=== PATIENT | female | born 1955 | race Hispanic/Latino ===

== ENCOUNTER → 2017-03-18 | Outpatient (CLI) | payer OTHER ==
[~2017-03-18] MED LIST: APIX5TAB PO; NYQUIL PO; TYL3 PO
[2017-03-18 09:07] LABS: INR 1.02 (0.85-1.15); PARTIAL THROMBOPLASTIN TIME 25.7 SEC (26.3-35.5); PROTHROMBIN TIME 10.7 SEC (9.6-11.6)
== END | disposition home or self-care (01) ==
LOC: LAB 08:07
PROVIDERS: ATTEND Internal Medicine
DX: Z86.711 Personal history of pulmonary embolism (principal)
CPT/HCPCS: 36415; 81241; 85300; 85302; 85305; 85306; 85610; 85730

== ENCOUNTER → 2017-03-29 | Outpatient (CLI) | payer OTHER ==
[2017-03-29 09:58] LABS: CREATININE 0.7 mg/dL (0.5-1.5)
== END | disposition home or self-care (01) ==
LOC: LAB 08:56
PROVIDERS: ATTEND Internal Medicine
DX: I26.99 Other pulmonary embolism without acute cor pulmonale (principal)
CPT/HCPCS: 36415; 82565; 84520

== ENCOUNTER → 2017-04-01 | Outpatient (CLI) | payer OTHER ==
[~2017-04-01] MED LIST changes: +IOPAMIDOL-370 100 ML VIAL IV ONE
== END | disposition home or self-care (01) ==
LOC: RAH 12:56
PROVIDERS: ATTEND Internal Medicine
DX: I26.99 Other pulmonary embolism without acute cor pulmonale (principal); I51.7 Cardiomegaly; M47.895 Other spondylosis, thoracolumbar region; K76.0 Fatty (change of) liver, not elsewhere classified
CPT/HCPCS: 71275; Q9967

== ENCOUNTER → 2017-12-17 | Outpatient (CLI) | payer OTHER ==
[~2017-12-17] MED LIST changes: -IOPAMIDOL-370 100 ML VIAL IV ONE
[2017-12-17 10:44] LABS: CREATININE 0.7 mg/dL (0.5-1.5)
== END | disposition home or self-care (01) ==
LOC: LAB 09:59
PROVIDERS: ATTEND Internal Medicine
DX: R05 Cough (principal); R06.02 Shortness of breath; R07.9 Chest pain, unspecified
CPT/HCPCS: 36415; 82565; 84520

== ENCOUNTER → 2017-12-27 | Outpatient (CLI) | payer OTHER ==
[~2017-12-27] MED LIST changes: +IOHEXOL 350 MG/ML 100ML INFUS..BTL IV ONE
== END | disposition home or self-care (01) ==
LOC: RAH 08:17
PROVIDERS: ATTEND Internal Medicine
DX: R06.02 Shortness of breath (principal); R05 Cough; R07.9 Chest pain, unspecified
CPT/HCPCS: 71275; Q9967

== ENCOUNTER → 2018-03-21 | Outpatient (CLI) | payer OTHER ==
[~2018-03-21] MED LIST changes: -IOHEXOL 350 MG/ML 100ML INFUS..BTL IV ONE
== END | disposition home or self-care (01) ==
LOC: RAH 10:18
PROVIDERS: ATTEND Internal Medicine
DX: M79.604 Pain in right leg (principal); Z86.718 Personal history of other venous thrombosis and embolism
CPT/HCPCS: 93970

== ENCOUNTER → 2018-05-29 | Outpatient (CLI) | payer OTHER | END | disposition home or self-care (01) | LOC: RAH 12:42 | PROVIDERS: ATTEND Internal Medicine | DX: Z12.31 Encounter for screening mammogram for malignant neoplasm of breast (principal) | CPT/HCPCS: 77067 ==

== ENCOUNTER → 2018-07-03 | Outpatient (CLI) | payer OTHER | END | disposition home or self-care (01) | LOC: RAH 12:26 | PROVIDERS: ATTEND Obstetrics & Gynecology | DX: N95.0 Postmenopausal bleeding (principal) | CPT/HCPCS: 76830 ==

== ENCOUNTER 2018-07-25 05:44 | Day surgery (SDC) | payer OTHER ==
[~2018-07-25] VITALS: Ht 157.5 cm; Wt 105.2 kg
[~2018-07-25 05:44] MED LIST changes: +SODIUM CHLORIDE 0.9% 1000ML 1,000 ML IV ONE
[2018-07-25 06:39] VITALS: BP 154/98
[2018-07-25] MEDS ORDERED: MV-M1TAB20 PO (06:45)
[2018-07-25 07:58] VITALS: BP 128/71
[2018-07-25 08:03] VITALS: BP 136/84
[2018-07-25 08:08] VITALS: BP 125/84
[2018-07-25 08:13] VITALS: BP 139/88
[2018-07-25 08:18] VITALS: BP 129/87
== END 2018-07-25 08:30 | disposition home or self-care (01) ==
LOC: DAH 05:44 → ENDO 05:44
PROVIDERS: ATTEND Internal Medicine
DX: Z09 Encounter for follow-up examination after completed treatment for conditions other than malignant neoplasm (principal); K57.30 Diverticulosis of large intestine without perforation or abscess without bleeding; K64.0 First degree hemorrhoids; Z86.010 Personal history of colon polyps; Z90.49 Acquired absence of other specified parts of digestive tract; Z86.711 Personal history of pulmonary embolism
CPT/HCPCS: 45378; A4606; J7030

== ENCOUNTER 2018-07-25 15:16 | Emergency (ER) | payer OTHER ==
[~2018-07-25 15:16] MED LIST changes: +MV-M1TAB20 PO; -SODIUM CHLORIDE 0.9% 1000ML 1,000 ML IV ONE
[2018-07-25] MEDS ORDERED: LIDOCAINE HCL 2% VISCOUS 15 ML UDCUP ONE (15:41)
[2018-07-25] MEDS ORDERED: MAG HYDROX/AL HYDROX/SIMETH ES 30 ML SUSP UDCUP ONE (15:41)
[2018-07-25] MEDS ORDERED: HYDROCODONE/ACETAMINOPHEN 5/325 MG TAB ONE (16:41)
[2018-07-25] MEDS ORDERED: MORPHINE SULFATE 2 MG/ML 1ML SYG ONE (16:44)
== END 2018-07-25 18:04 | disposition home or self-care (01) ==
LOC: EDH 15:16
DX: R13.10 Dysphagia, unspecified (principal); J32.0 Chronic maxillary sinusitis; Z90.49 Acquired absence of other specified parts of digestive tract
CPT/HCPCS: 70490; 96372

== ENCOUNTER → 2018-11-27 | Outpatient (CLI) | payer OTHER ==
[~2018-11-27] MED LIST changes: +ALBUTEROL SULFATE 0.083% 2.5 MG/3 ML INH IH ONE; -APIX5TAB PO; -NYQUIL PO; -TYL3 PO
== END | disposition home or self-care (01) ==
LOC: RESP 08:26
PROVIDERS: ATTEND Internal Medicine
DX: R06.02 Shortness of breath (principal)
CPT/HCPCS: 94060; 94727; 94729

== ENCOUNTER → 2018-11-28 | Outpatient (CLI) | payer OTHER ==
[~2018-11-28] MED LIST changes: -ALBUTEROL SULFATE 0.083% 2.5 MG/3 ML INH IH ONE
[2018-11-28 11:28] LABS: BASOPHILS % (AUTO) 0.9 % (0.0-5.0); HEMATOCRIT 40.1 % (36-48); LYMPHOCYTES % (AUTO) 35.6 % (21.0-51.0); MEAN CORPUSCULAR HEMOGLOBIN 31.8 pg (27.0-33.0); MEAN CORPUSCULAR HGB CONC 34.3 g/dL (32.0-36.0); MEAN CORPUSCULAR VOLUME 92.8 fL (79-99); NEUTROPHILS % (AUTO) 51.5 % (40.0-77.0); NUCLEATED RED BLOOD CELLS 0.1 % (0.0-0.19); PLATELET COUNT (AUTO) 259 K/uL (130-400); RED BLOOD CELL COUNT(AUTO) 4.32 MIL/uL (4.00-5.50); RED CELL DISTRIBUTION WIDTH 12.1 % (11.0-15.5); WHITE BLOOD COUNT (AUTO) 6.6 K/uL (4.8-10.8)
[2018-11-28 11:46] LABS: PARTIAL THROMBOPLASTIN TIME 26.4 SEC (26.3-35.5); PROTHROMBIN TIME 10.5 SEC (9.6-11.6)
== END | disposition home or self-care (01) ==
LOC: RAH 10:32
PROVIDERS: ATTEND Obstetrics & Gynecology
DX: N83.201 Unspecified ovarian cyst, right side (principal); D25.9 Leiomyoma of uterus, unspecified
CPT/HCPCS: 36415; 76830; 85025; 85610; 85730

== ENCOUNTER 2018-12-31 05:51 | Day surgery (SDC) | payer OTHER ==
[2018-12-30 15:41] LABS: BASOPHILS % (AUTO) 0.9 % (0.0-5.0); EOSINOPHILS % (AUTO) 2.9 % (0.0-8.0); HEMATOCRIT 40.7 % (36-48); LYMPHOCYTES % (AUTO) 32.7 % (21.0-51.0); MEAN CORPUSCULAR HEMOGLOBIN 31.6 pg (27.0-33.0); MEAN CORPUSCULAR HGB CONC 34.1 g/dL (32.0-36.0); MEAN CORPUSCULAR VOLUME 92.8 fL (79-99); MONOCYTES % (AUTO) 6.7 % (3.0-13.0); NEUTROPHILS % (AUTO) 56.8 % (40.0-77.0); PLATELET COUNT (AUTO) 249 K/uL (130-400); RED BLOOD CELL COUNT(AUTO) 4.39 MIL/uL (4.00-5.50); RED CELL DISTRIBUTION WIDTH 12.1 % (11.0-15.5); WHITE BLOOD COUNT (AUTO) 7.2 K/uL (4.8-10.8)
[2018-12-30 15:49] VITALS: BP 150/84
[2018-12-30 16:02] LABS: CREATININE 0.7 mg/dL (0.5-1.5)
[2018-12-31] VITALS (13 sets, daily range): BP systolic 124–150; BP diastolic 62–84
[~2018-12-31] VITALS: Ht 160 cm; Wt 107.5 kg
[2018-12-31] MEDS ORDERED: LACTATED RINGERS 1000ML 1,000 ML IV ONE (06:15)
[2018-12-31] MEDS ORDERED: LIDOCAINE PF 2% 5ML ABBOJECT ONE (06:55)
[2018-12-31] MEDS ORDERED: PROPOFOL 10 MG/ML 20ML VIAL IV ONE (06:55)
[2018-12-31] MEDS ORDERED: MIDAZOLAM HCL 1 MG/ML 2ML VIAL ONE (06:55)
[2018-12-31] MEDS ORDERED: FENTANYL CITRATE PF 50 MCG/1 ML 2ML VIAL ONE ×2 (06:56→07:50)
[2018-12-31] MEDS ORDERED: ROCURONIUM 10MG/1ML SYR 10 MG/ML ML ONE (06:56)
[2018-12-31] MEDS ORDERED: ONDANSETRON HCL 4 MG/2 ML VIAL ONE (06:56)
[2018-12-31] MEDS ORDERED: DEXAMETHASONE SOD PHOSPHATE 10MG/ML 1ML VIAL ONE (07:42)
[2018-12-31] MEDS ORDERED: NEOSTIGMINE 5MG/5ML SYR IV ONE (07:59)
[2018-12-31] MEDS ORDERED: GLYCOPYRROLATE 1 MG/5 ML SYRINGE ONE (07:59)
--- NOTE | 2018-12-31 09:00 | NUR ---
POST RECEIVED PATIENT FROM PACU, S/P D&C HYSTEROSCOPY, LEBRON PAD WITH NO BLEEDING NOTED. PT AWAKE AND ALERT, DENIES ANY PAIN OR DISCOMFORTS.VS STABLE ON ARRIVAL. PLAN OF CARE DISCUSS WITH PATIENT /DAUGHTER. CALL LIGHT WITHIN REACH ,.
--- NOTE | 2018-12-31 09:40 | NUR ---
dc pt dc home via wc,no distress noted. pt denied any pain or discomforts. pt accompanied by daughter
== END 2018-12-31 09:40 | disposition home or self-care (01) ==
LOC: DAH 05:51
PROVIDERS: ATTEND Obstetrics & Gynecology
DX: N95.0 Postmenopausal bleeding (principal); N84.0 Polyp of corpus uteri; R93.89 Abnormal findings on diagnostic imaging of other specified body structures; Z79.899 Other long term (current) drug therapy; Z79.2 Long term (current) use of antibiotics; Z90.49 Acquired absence of other specified parts of digestive tract; Z98.890 Other specified postprocedural states; E66.01 Morbid (severe) obesity due to excess calories; Z68.41 Body mass index [BMI] 40.0-44.9, adult; Z82.49 Family history of ischemic heart disease and other diseases of the circulatory system
CPT/HCPCS: 36415; 58558; 80048; 85025; 88305; A4215; A4221; A4222; A4223; A4351; A4355; A4663; J1100; J2001; J2250; J2405; J2704; J2710; J3010 ×2; J3490; J7030; J7120

== ENCOUNTER → 2019-03-23 | Outpatient (CLI) | payer OTHER ==
[2019-03-23 08:38] LABS: BASOPHILS % (AUTO) 0.6 % (0.0-5.0); EOSINOPHILS % (AUTO) 2.7 % (0.0-8.0); HEMATOCRIT 42.2 % (36-48); LYMPHOCYTES % (AUTO) 30.4 % (21.0-51.0); MEAN CORPUSCULAR HGB CONC 33.9 g/dL (32.0-36.0); MEAN CORPUSCULAR VOLUME 91.5 fL (79-99); MONOCYTES % (AUTO) 6.4 % (3.0-13.0); NEUTROPHILS % (AUTO) 59.7 % (40.0-77.0); PLATELET COUNT (AUTO) 262 K/uL (130-400); RED BLOOD CELL COUNT(AUTO) 4.61 MIL/uL (4.00-5.50); RED CELL DISTRIBUTION WIDTH 11.5 % (11.0-15.5); WHITE BLOOD COUNT (AUTO) 6.6 K/uL (4.8-10.8)
[2019-03-23 08:47] LABS: HEMOGLOBIN A1C 6.5 % (4.0-6.0)
[2019-03-23 09:04] LABS: ALBUMIN 3.8 g/dL (3.5-5.0); BILIRUBIN,TOTAL 1.4 mg/dL (0.2-1.0); CREATININE 0.7 mg/dL (0.5-1.5); POTASSIUM 4.4 mmol/L (3.5-5.1); THYROID STIMULATING HORMONE 1.83 uIU/mL (0.36-3.74); TOTAL PROTEIN, SERUM 7.8 g/dL (6.0-8.3)
[2019-03-23 09:05] LABS: APPEARANCE,URINE Clear (CLEAR); BILIRUBIN,URINE Negative (NEGATIVE); COLOR,URINE Yellow (YELLOW); GLUCOSE, URINE (UA) Negative (NEGATIVE); KETONES,URINE Negative (NEGATIVE); LEUKOCYTE ESTERASE ,URINE Moderate (NEGATIVE); NITRATE,URINE Negative (NEGATIVE); OCCULT BLOOD,URINE Negative (NEGATIVE); PROTEIN,URINE Negative (NEGATIVE)
[2019-03-23 09:12] LABS: BACTERIA,URINE Rare /HPF (None Seen); MUCUS,URINE Moderate LPF (None Seen); RBC,URINE 0-1 /HPF (0-1); SQUAMOUS EPITHELIAL CELL,UR Rare /HPF (0-2)
== END | disposition home or self-care (01) ==
LOC: LAB 07:25
PROVIDERS: ATTEND Internal Medicine Nephrology
DX: Z00.01 Encounter for general adult medical examination with abnormal findings (principal)
CPT/HCPCS: 36415; 80053; 80061; 81001; 83036; 84443; 85025

== ENCOUNTER → 2019-09-29 | Outpatient (CLI) | payer OTHER ==
[2019-09-29 09:12] LABS: BASOPHILS % (AUTO) 0.6 % (0.0-5.0); EOSINOPHILS % (AUTO) 3.7 % (0.0-8.0); HEMATOCRIT 41.6 % (36-48); LYMPHOCYTES % (AUTO) 26.3 % (21.0-51.0); MEAN CORPUSCULAR HEMOGLOBIN 31.9 pg (27.0-33.0); MEAN CORPUSCULAR HGB CONC 33.9 g/dL (32.0-36.0); MEAN CORPUSCULAR VOLUME 94.1 fL (79-99); NEUTROPHILS % (AUTO) 62.1 % (40.0-77.0); PLATELET COUNT (AUTO) 248 K/uL (130-400); RED BLOOD CELL COUNT(AUTO) 4.42 MIL/uL (4.00-5.50); RED CELL DISTRIBUTION WIDTH 11.4 % (11.0-15.5); WHITE BLOOD COUNT (AUTO) 6.7 K/uL (4.8-10.8)
[2019-09-29 09:22] LABS: HEMOGLOBIN A1C 7.1 % (4.0-6.0)
[2019-09-29 09:35] LABS: ALBUMIN 3.6 g/dL (3.5-5.0); BILIRUBIN,TOTAL 1.1 mg/dL (0.2-1.0); CREATININE 0.7 mg/dL (0.5-1.5); POTASSIUM 4.7 mmol/L (3.5-5.1); THYROID STIMULATING HORMONE 1.59 uIU/mL (0.36-3.74); TOTAL PROTEIN, SERUM 7.3 g/dL (6.0-8.3)
== END | disposition home or self-care (01) ==
LOC: LAB 08:41
PROVIDERS: ATTEND Internal Medicine Nephrology
DX: E11.9 Type 2 diabetes mellitus without complications (principal); E78.2 Mixed hyperlipidemia; R53.83 Other fatigue
CPT/HCPCS: 36415; 80053; 80061; 83036; 84443; 85025

== ENCOUNTER 2020-01-04 07:57 | Emergency (ER) | payer OTHER ==
[2020-01-04 08:32] LABS: BASOPHILS % (AUTO) 0.3 % (0.0-5.0); HEMATOCRIT 42.4 % (36-48); MEAN CORPUSCULAR HEMOGLOBIN 30.9 pg (27.0-33.0); MEAN CORPUSCULAR HGB CONC 33.3 g/dL (32.0-36.0); MEAN CORPUSCULAR VOLUME 92.8 fL (79-99); NEUTROPHILS % (AUTO) 48.4 % (40.0-77.0); PLATELET COUNT (AUTO) 199 K/uL (130-400); RED BLOOD CELL COUNT(AUTO) 4.57 MIL/uL (4.00-5.50); RED CELL DISTRIBUTION WIDTH 11.5 % (11.0-15.5); WHITE BLOOD COUNT (AUTO) 3.9 K/uL (4.8-10.8)
[2020-01-04 08:35] LABS: ALBUMIN 3.9 g/dL (3.5-5.0); BILIRUBIN,TOTAL 0.9 mg/dL (0.2-1.0); CREATININE 0.9 mg/dL (0.5-1.5); POTASSIUM 3.8 mmol/L (3.5-5.1); TOTAL PROTEIN, SERUM 7.5 g/dL (6.0-8.3)
[2020-01-04 08:41] LABS: INR 0.99 (0.85-1.15); PARTIAL THROMBOPLASTIN TIME 26.6 SEC (26.3-35.5); PROTHROMBIN TIME 10.7 SEC (9.6-11.6)
[2020-01-04] MEDS ORDERED: LIDOCAINE 5% TOPICAL PATCH TP ONE (09:23)
[2020-01-04] MEDS ORDERED: KETOROLAC TROMETHAMINE 30MG/ML ONE (09:23)
[2020-01-04] MEDS ORDERED: SODIUM CHLORIDE 0.9% 500ML 500 ML IV ONE (10:00)
[2020-01-04] MEDS ORDERED: IOHEXOL-350 75 ML VIAL IV ONE (10:10)
== END 2020-01-04 11:49 | disposition home or self-care (01) ==
LOC: EDH 07:57
DX: M79.651 Pain in right thigh (principal); M25.511 Pain in right shoulder; M25.512 Pain in left shoulder; M79.602 Pain in left arm; R06.00 Dyspnea, unspecified; Z86.711 Personal history of pulmonary embolism; Z86.718 Personal history of other venous thrombosis and embolism; Z98.890 Other specified postprocedural states
CPT/HCPCS: 36415; 71045; 71275; 80053; 82550; 84484; 85025; 85378; 85610; 85730; 93005; 93926; 93971; 96361; 96374; 99285; J1885; J7040; Q9967

== ENCOUNTER 2020-01-12 08:58 | Emergency (ER) | payer OTHER ==
[2020-01-12] MEDS ORDERED: ONDANSETRON HCL 4 MG/2 ML VIAL ONE (09:50)
[2020-01-12] MEDS ORDERED: SODIUM CHLORIDE 0.9% 1000ML 1,000 ML IV ONE (09:50)
[2020-01-12 09:54] LABS: BASOPHILS % (AUTO) 0.2 % (0.0-5.0); HEMATOCRIT 44.3 % (36-48); LYMPHOCYTES % (AUTO) 21.1 % (21.0-51.0); MEAN CORPUSCULAR HEMOGLOBIN 31.1 pg (27.0-33.0); MEAN CORPUSCULAR HGB CONC 34.3 g/dL (32.0-36.0); MEAN CORPUSCULAR VOLUME 90.8 fL (79-99); MONOCYTES % (AUTO) 10.5 % (3.0-13.0); NEUTROPHILS % (AUTO) 67.8 % (40.0-77.0); PLATELET COUNT (AUTO) 194 K/uL (130-400); RED BLOOD CELL COUNT(AUTO) 4.88 MIL/uL (4.00-5.50); RED CELL DISTRIBUTION WIDTH 11.5 % (11.0-15.5); WHITE BLOOD COUNT (AUTO) 4.7 K/uL (4.8-10.8)
[2020-01-12 10:09] LABS: CARBON DIOXIDE 23 mmol/L (21-32); CHLORIDE 103 mmol/L (101-111); GLOMERULAR FILTR. RATE CALC 60 mL/min (>60); GLUCOSE,RANDOM 208 mg/dL (70-105); SODIUM SERUM 137 mmol/L (136-145); UREA NITROGEN, BLOOD 10 mg/dL (7-18)
[2020-01-12 10:10] LABS: PARTIAL THROMBOPLASTIN TIME 27.1 SEC (26.3-35.5); PROTHROMBIN TIME 10.8 SEC (9.6-11.6)
[2020-01-12 10:12] LABS: BILIRUBIN,URINE Small (NEGATIVE); COLOR,URINE Dark Yellow (YELLOW); GLUCOSE, URINE (UA) TRACE mg/dL (NEGATIVE); KETONES,URINE 15 mg/dL (NEGATIVE); LEUKOCYTE ESTERASE ,URINE Moderate (NEGATIVE); NITRATE,URINE Negative (NEGATIVE); OCCULT BLOOD,URINE Negative (NEGATIVE); PROTEIN,URINE POS 2+ mg/dL (NEGATIVE)
[2020-01-12] MEDS ORDERED: IVERMECTIN 3 MG TAB PO SCH (10:15)
[2020-01-12 10:20] LABS: ALANINE AMINOTRANSFERASE 73 U/L (12-78); ALBUMIN 3.7 g/dL (3.5-5.0); APPEARANCE,URINE SLIGHTLY CLOUDY (CLEAR); ASPARTATE AMINOTRANSFERASE 65 U/L (10-37); BILIRUBIN,TOTAL 1.3 mg/dL (0.2-1.0); CREATINE KINASE, TOTAL 117 U/L (21-232); LACTATE DEHYDROGENASE 303 U/L (81-234); MYOGLOBIN 106 ng/mL (10-92); TROPONIN I < 0.04 ng/mL (0.00-0.06)
[2020-01-12 10:29] LABS: BACTERIA,URINE Moderate /HPF (None Seen); RBC,URINE None Seen /HPF (0-1)
[2020-01-12 11:03] LABS: ERYTHROCYTE SEDIMENTATION RATE 30 MM/HR (0-30)
== END 2020-01-12 12:16 | disposition home or self-care (01) ==
LOC: EDH 08:58
DX: U07.1 COVID-19 (principal); J20.8 Acute bronchitis due to other specified organisms; E86.0 Dehydration; Z86.718 Personal history of other venous thrombosis and embolism; Z98.890 Other specified postprocedural states
CPT/HCPCS: 36415; 71045; 80053; 81001; 82550; 82728; 83605; 83615; 83874; 84145; 84484; 85025; 85378; 85610; 85651; 85730; 86140; 86900; 86901; 87040 ×2; 87088; 87426; 87507; 93005; 96361; 96374; 99285; J2405; J7030; 96365; 96366

== ENCOUNTER → 2020-02-01 | Outpatient (CLI) | payer OTHER | END | disposition home or self-care (01) | LOC: RAH 07:45 | PROVIDERS: ATTEND Internal Medicine Nephrology | DX: M79.651 Pain in right thigh (principal) | CPT/HCPCS: 73718 ==

== ENCOUNTER 2020-07-08 11:33 | Emergency (ER) | payer OTHER ==
[2020-07-08 12:02] LABS: BASOPHILS % (AUTO) 0.6 % (0.0-5.0); EOSINOPHILS % (AUTO) 3.2 % (0.0-8.0); HEMATOCRIT 39.8 % (36-48); LYMPHOCYTES % (AUTO) 36.1 % (21.0-51.0); MEAN CORPUSCULAR HGB CONC 34.4 g/dL (32.0-36.0); MONOCYTES % (AUTO) 6.2 % (3.0-13.0); NEUTROPHILS % (AUTO) 53.4 % (40.0-77.0); PLATELET COUNT (AUTO) 203 K/uL (130-400); RED BLOOD CELL COUNT(AUTO) 4.28 MIL/uL (4.00-5.50); RED CELL DISTRIBUTION WIDTH 11.7 % (11.0-15.5); WHITE BLOOD COUNT (AUTO) 6.3 K/uL (4.8-10.8)
[2020-07-08 12:10] LABS: INR 1.05 (0.85-1.15); PROTHROMBIN TIME 11.4 SEC (9.6-11.6)
[2020-07-08 12:26] LABS: CREATININE 0.7 mg/dL (0.5-1.5)
[2020-07-08 12:31] LABS: ALBUMIN 3.7 g/dL (3.5-5.0); BILIRUBIN,TOTAL 1.3 mg/dL (0.2-1.0); TOTAL PROTEIN, SERUM 7.4 g/dL (6.0-8.3)
[2020-07-08] MEDS ORDERED: IOHEXOL-350 75 ML VIAL IV ONE (12:45)
== END 2020-07-08 15:44 | disposition home or self-care (01) ==
LOC: EDH 11:33
DX: R07.89 Other chest pain (principal); R05 Cough; E11.9 Type 2 diabetes mellitus without complications; Z86.711 Personal history of pulmonary embolism; Z90.49 Acquired absence of other specified parts of digestive tract
CPT/HCPCS: 36415; 71275; 80053; 82550; 84484; 85025; 85378; 85610; 85730; 93005; 99285; Q9967

== ENCOUNTER → 2020-07-08 | Outpatient (CLI) | payer OTHER | END | disposition home or self-care (01) | LOC: LAB 08:34 | PROVIDERS: ATTEND Internal Medicine Nephrology | DX: R06.02 Shortness of breath (principal); R07.9 Chest pain, unspecified | CPT/HCPCS: 36415; 85378 ==

== ENCOUNTER → 2021-07-05 | Outpatient (CLI) | payer OTHER ==
[2021-07-05 08:44] LABS: BASOPHILS % (AUTO) 0.9 % (0.0-5.0); EOSINOPHILS % (AUTO) 3.1 % (0.0-8.0); HEMATOCRIT 45.9 % (36-48); LYMPHOCYTES % (AUTO) 30.6 % (21.0-51.0); MEAN CORPUSCULAR HEMOGLOBIN 31.5 pg (27.0-33.0); MEAN CORPUSCULAR HGB CONC 34.2 g/dL (32.0-36.0); MONOCYTES % (AUTO) 6.3 % (3.0-13.0); NEUTROPHILS % (AUTO) 58.8 % (40.0-77.0); PLATELET COUNT (AUTO) 243 K/uL (130-400); RED BLOOD CELL COUNT(AUTO) 4.99 MIL/uL (4.00-5.50); RED CELL DISTRIBUTION WIDTH 11.3 % (11.0-15.5); WHITE BLOOD COUNT (AUTO) 6.8 K/uL (4.8-10.8)
[2021-07-05 09:04] LABS: ALBUMIN 3.9 g/dL (3.5-5.0); BILIRUBIN,TOTAL 1.2 mg/dL (0.2-1.0); CREATININE 0.8 mg/dL (0.5-1.5); HEMOGLOBIN A1C 8.4 % (4.0-6.0); POTASSIUM 4.7 mmol/L (3.5-5.1); THYROID STIMULATING HORMONE 1.78 uIU/mL (0.36-3.74); TOTAL PROTEIN, SERUM 7.6 g/dL (6.0-8.3)
== END | disposition home or self-care (01) ==
LOC: LAB 08:11
PROVIDERS: ATTEND Internal Medicine Nephrology
DX: E11.9 Type 2 diabetes mellitus without complications (principal); E78.5 Hyperlipidemia, unspecified; E55.9 Vitamin D deficiency, unspecified
CPT/HCPCS: 36415; 80053; 80061; 83036; 84443; 85025

== ENCOUNTER 2021-07-14 12:53 | Emergency (ER) | payer OTHER ==
[~2021-07-14] VITALS: Ht 157.5 cm; Wt 105.2 kg
[2021-07-14] MEDS ORDERED: APAP/CODEINE 120/12MG 5ML PO ONE (13:00)
[2021-07-14] MEDS ORDERED: PREDNISOLONE 15 MG/5 ML SOLN PO SCH (13:00)
[2021-07-14] MEDS ORDERED: DEXAMETHASONE SOD PHOSPHATE 4 MG/ML 1ML VIAL IM ONE (13:00)
[2021-07-14] MEDS ORDERED: DEXAMETHASONE SOD PHOSPHATE 4 MG/ML 1ML VIAL ONE (14:09)
[2021-07-14] MEDS ORDERED: LORA-726 PO (15:01)
[2021-07-14] MEDS ORDERED: FLUT16H NASAL (15:01)
[2021-07-14 15:05] VITALS: BP 157/91
== END 2021-07-14 15:12 | disposition home or self-care (01) ==
LOC: EDH 12:53
DX: J06.9 Acute upper respiratory infection, unspecified (principal); Z20.822 Contact with and (suspected) exposure to COVID-19; E11.9 Type 2 diabetes mellitus without complications; Z88.5 Allergy status to narcotic agent; Z79.52 Long term (current) use of systemic steroids
CPT/HCPCS: 87635; 87804 ×2; 87880; 96372; 99283; C9803; J1100

== ENCOUNTER → 2021-07-19 | Outpatient (CLI) | payer OTHER ==
[~2021-07-19] MED LIST changes: +FLUT16H NASAL; +LORA-726 PO; -MV-M1TAB20 PO
== END | disposition home or self-care (01) ==
LOC: RAH 07:51
PROVIDERS: ATTEND Internal Medicine Nephrology
DX: Z12.31 Encounter for screening mammogram for malignant neoplasm of breast (principal)
CPT/HCPCS: 77067

== ENCOUNTER → 2022-03-30 | Outpatient (CLI) | payer OTHER ==
[2022-03-30 08:53] LABS: BASOPHILS % (AUTO) 0.6 % (0.0-5.0); EOSINOPHILS % (AUTO) 3.3 % (0.0-8.0); HEMATOCRIT 44.6 % (36-48); LYMPHOCYTES % (AUTO) 25.1 % (21.0-51.0); MEAN CORPUSCULAR HEMOGLOBIN 31.5 pg (27.0-33.0); MEAN CORPUSCULAR HGB CONC 33.9 g/dL (32.0-36.0); MEAN CORPUSCULAR VOLUME 92.9 fL (79-99); MONOCYTES % (AUTO) 5.7 % (3.0-13.0); NEUTROPHILS % (AUTO) 64.9 % (40.0-77.0); PLATELET COUNT (AUTO) 238 K/uL (130-400); RED CELL DISTRIBUTION WIDTH 11.3 % (11.0-15.5)
[2022-03-30 09:03] LABS: HEMOGLOBIN A1C 9.3 % (4.0-6.0)
[2022-03-30 09:20] LABS: ALBUMIN 3.7 g/dL (3.5-5.0); CREATININE 0.7 mg/dL (0.5-1.5); POTASSIUM 4.5 mmol/L (3.5-5.1); THYROID STIMULATING HORMONE 2.05 uIU/mL (0.36-3.74); TOTAL PROTEIN, SERUM 7.6 g/dL (6.0-8.3)
== END | disposition home or self-care (01) ==
LOC: RAH 08:23
PROVIDERS: ATTEND Obstetrics & Gynecology
DX: N95.0 Postmenopausal bleeding (principal)
CPT/HCPCS: 36415; 76830; 80053; 80061; 83036; 84443; 85025

== ENCOUNTER 2023-01-05 09:28 | Emergency (ER) | payer OTHER ==
[~2023-01-05] VITALS: Ht 157.5 cm; Wt 104.3 kg
[~2023-01-05 09:28] MED LIST changes: +DULA1.5P SQ; +METF-444 PO
[2023-01-05 09:55] LABS: SARS-CoV-2, RNA, NAAT NEGATIVE SARS CoV-2 (NEGATIVE)
[2023-01-05 10:27] LABS: RAPID GROUP A STREP negative (NEGATIVE)
[2023-01-05 10:32] LABS: INFLUENZA TYPE A Negative For Type A (NEGATIVE); INFLUENZA TYPE B Negative For Type B (NEGATIVE)
[2023-01-05] MEDS ORDERED: ALBUTEROL 0.083% 2.5 MG/3 ML INH IH ONE (11:30)
[2023-01-05] MEDS ORDERED: GUAIFENESIN 600 MG TABLET.ER PO ONE (11:30)
[2023-01-05 11:36] VITALS: PULSE 106; RESP 18
[2023-01-05] MEDS ORDERED: HYDRALAZINE HCL 10 MG TABLET ONE (11:56)
[2023-01-05] MEDS ORDERED: HYDRALAZINE HCL 10 MG TABLET PO SCH (12:00)
[2023-01-05] MEDS ORDERED: GUAI600T50 PO (12:25)
[2023-01-05] MEDS ORDERED: ALBUHFA IH (12:25)
[2023-01-05 12:50] VITALS: BP 136/82; PULSE 82; RESP 18; O2SAT 98
== END 2023-01-05 13:00 | disposition home or self-care (01) ==
LOC: EDH 09:28
DX: J20.8 Acute bronchitis due to other specified organisms (principal); I10 Essential (primary) hypertension; E11.9 Type 2 diabetes mellitus without complications; Z20.822 Contact with and (suspected) exposure to COVID-19; Z79.84 Long term (current) use of oral hypoglycemic drugs; Z79.899 Other long term (current) drug therapy; Z98.890 Other specified postprocedural states; Z88.8 Allergy status to other drugs, medicaments and biological substances
CPT/HCPCS: 99283; 87635; 87880; 87804 ×2; 94640; C9803

== ENCOUNTER → 2023-02-01 | Outpatient (CLI) | payer OTHER ==
[~2023-02-01] MED LIST changes: +ALBUHFA IH; +GUAI600T50 PO
== END | disposition home or self-care (01) ==
LOC: RAH 08:33
PROVIDERS: ATTEND Internal Medicine Nephrology
DX: J32.0 Chronic maxillary sinusitis (principal); R05.9 Cough, unspecified
CPT/HCPCS: 70220; 71046

== ENCOUNTER → 2023-05-24 | Outpatient (CLI) | payer OTHER ==
[2023-05-24 07:37] LABS: HEMATOCRIT 43.7 % (36-48); MEAN CORPUSCULAR HEMOGLOBIN 31.5 pg (27.0-33.0); MEAN CORPUSCULAR HGB CONC 34.3 g/dL (32.0-36.0); MEAN CORPUSCULAR VOLUME 91.8 fL (79-99); PLATELET COUNT (AUTO) 240 K/uL (130-400); RED BLOOD CELL COUNT(AUTO) 4.76 MIL/uL (4.00-5.50); RED CELL DISTRIBUTION WIDTH 11.5 % (11.0-15.5); WHITE BLOOD COUNT (AUTO) 5.8 K/uL (4.8-10.8)
[2023-05-24 08:01] LABS: ALBUMIN 3.8 g/dL (3.5-5.0); BILIRUBIN,TOTAL 1.1 mg/dL (0.2-1.0); CREATININE 0.5 mg/dL (0.5-1.0); POTASSIUM 4.3 mmol/L (3.5-5.1); TOTAL PROTEIN, SERUM 7.4 g/dL (6.0-8.3)
[2023-05-24 08:14] LABS: BAND NEUTROPHILS % (MANUAL) 3 % (0-2); BASOPHILS % (MANUAL) 1 % (0-2); EOSINOPHILS % (MANUAL) 3 % (1-6); LYMPHOCYTES % (MANUAL) 35 % (22-44); MAN.DIFF COMMENT-IMPRESSION MANUAL DIFFERENTIAL; MONOCYTES % (MANUAL) 3 % (2-9); SEGMENTED NEUTROPHILS % 55 % (40-70); TOTAL CELLS COUNTED 100; WBC MORPHOLOGY CONSISTENT W/DIFF
[2023-05-24 08:15] LABS: PLATELET MORPHOLOGY COMMENT ADEQUATE
== END | disposition home or self-care (01) ==
LOC: LAB 07:11
PROVIDERS: ATTEND Internal Medicine Nephrology
DX: E11.9 Type 2 diabetes mellitus without complications (principal); E78.5 Hyperlipidemia, unspecified; E55.9 Vitamin D deficiency, unspecified
CPT/HCPCS: 36415; 80053; 80061; 83036; 84443; 85025

== ENCOUNTER 2023-12-07 15:34 | Inpatient (IN) | payer OTHER ==
[~2023-12-07] VITALS: Ht 157.5 cm; Wt 94.8 kg
[~2023-12-07 15:34] MED LIST changes: -ALBUHFA IH; -DULA1.5P SQ; -FLUT16H NASAL; -GUAI600T50 PO; -LORA-726 PO; -METF-444 PO; +METF-527 PO; +MV-M-9 PO; +SEMA0.258 SQ
[2023-12-07] MEDS: PANTOPrazole 40MG INJ 80 MG in 0.9%NACL 100ML 100 ML IV SCH (15:47)
[2023-12-07 15:58] LABS: BASOPHILS # (AUTO) 0.06 K/uL (0.00-0.20); BASOPHILS % (AUTO) 0.6 % (0.0-5.0); EOSINOPHILS # (AUTO) 0.27 K/uL (0.00-0.70); EOSINOPHILS % (AUTO) 2.7 % (0.0-8.0); HEMATOCRIT 34.5 % (36-48); IMMATURE GRANULOCYTE ABSOLUTE 0.02 K/uL (0-1); LYMPHOCYTES # (AUTO) 3.5 K/uL (1.0-4.8); LYMPHOCYTES % (AUTO) 34.5 % (21.0-51.0); MEAN CORPUSCULAR HEMOGLOBIN 28.8 pg (27.0-33.0); MEAN CORPUSCULAR HGB CONC 32.2 g/dL (32.0-36.0); MEAN CORPUSCULAR VOLUME 89.4 fL (79-99); MONOCYTES # (AUTO) 0.7 K/uL (0.1-1.0); MONOCYTES % (AUTO) 6.5 % (3.0-13.0); NEUTROPHILS # (AUTO) 5.6 K/uL (1.8-7.7); NEUTROPHILS % (AUTO) 55.5 % (40.0-77.0); PLATELET COUNT (AUTO) 317 K/uL (130-400); RED BLOOD CELL COUNT(AUTO) 3.86 MIL/uL (4.00-5.50); RED CELL DISTRIBUTION WIDTH 12.2 % (11.0-15.5)
[2023-12-07 16:10] LABS: INR 1.04 (0.85-1.15); PROTHROMBIN TIME 11.2 SEC (9.6-11.6)
[2023-12-07 16:12] LABS: CREATININE 0.8 mg/dL (0.5-1.0); PARTIAL THROMBOPLASTIN TIME 22.6 SEC (26.3-35.5); POTASSIUM 3.6 mmol/L (3.5-5.1)
[2023-12-07] MEDS: PANTOPrazole 40 MG/VIAL IVP ONE (16:31)
[2023-12-07] MEDS ORDERED: PANT40TA PO (17:50)
[2023-12-07] MEDS ORDERED: acetaMINOPHEN 325 MG TAB PO PRN (18:00)
[2023-12-07 18:45] VITALS: BP 135/76; PULSE 106; RESP 18; TEMP 97.6
[2023-12-07] MEDS ORDERED: COMPOUND IV REFRIGERATED 1 EACH IVSOLN MISC PRN (19:30)
[2023-12-07] MEDS: INSULIN humuLIN R 100 UNIT/ML 3ML SQ SCH (22:41)
[2023-12-07 23:20] VITALS: BP 133/60; PULSE 108; RESP 18; TEMP 98
[2023-12-08] VITALS (7 sets, daily range): BP systolic 105–147; BP diastolic 57–73; PULSE 88–121; RESP 18; TEMP 97.8–98.7; O2SAT 95
[2023-12-08 05:42] LABS: BASOPHILS # (AUTO) 0.04 K/uL (0.00-0.20); BASOPHILS % (AUTO) 0.4 % (0.0-5.0); EOSINOPHILS # (AUTO) 0.08 K/uL (0.00-0.70); EOSINOPHILS % (AUTO) 0.8 % (0.0-8.0); HEMATOCRIT 30.3 % (36-48); IMMATURE GRANULOCYTE ABSOLUTE 0.04 K/uL (0-1); LYMPHOCYTES # (AUTO) 2.7 K/uL (1.0-4.8); MEAN CORPUSCULAR VOLUME 90.7 fL (79-99); MONOCYTES # (AUTO) 0.5 K/uL (0.1-1.0); MONOCYTES % (AUTO) 5.1 % (3.0-13.0); NEUTROPHILS # (AUTO) 7.1 K/uL (1.8-7.7); NEUTROPHILS % (AUTO) 67.3 % (40.0-77.0); PLATELET COUNT (AUTO) 258 K/uL (130-400); RED BLOOD CELL COUNT(AUTO) 3.34 MIL/uL (4.00-5.50); RED CELL DISTRIBUTION WIDTH 12.4 % (11.0-15.5); WHITE BLOOD COUNT (AUTO) 10.6 K/uL (4.8-10.8)
[2023-12-08 05:55] LABS: CREATININE 0.7 mg/dL (0.5-1.0); MAGNESIUM 1.6 mg/dL (1.80-2.40); POTASSIUM 3.7 mmol/L (3.5-5.1)
[2023-12-08 09:11] LABS: APPEARANCE,URINE CLOUDY (CLEAR); BILIRUBIN,URINE NEGATIVE (NEGATIVE); COLOR,URINE YELLOW (YELLOW); GLUCOSE, URINE (UA) 150 mg/dL (NEGATIVE); KETONES,URINE 10 mg/dL (NEGATIVE); LEUKOCYTE ESTERASE ,URINE 500 Leu/uL (NEGATIVE); NITRATE,URINE NEGATIVE (NEGATIVE); OCCULT BLOOD,URINE SMALL (NEGATIVE); PH,URINE 5.5 (5.0-8.0); PROTEIN,URINE 10 mg/dL (NEGATIVE); UROBILINOGEN,URINE 0.2 mg/dL (0.2-1.0)
[2023-12-08 09:15] LABS: ADD UA MICROSCOPIC YES
[2023-12-08 09:18] LABS: BACTERIA,URINE FEW /HPF (None Seen); MUCUS,URINE RARE LPF (None Seen); SQUAMOUS EPITHELIAL CELL,UR MANY /HPF (0-2); WBC,URINE 26-50 /HPF (0-1)
[2023-12-08] MEDS ORDERED: COMPOUND IV MISC 1 EACH IVSOLN MISC PRN (11:30)
[2023-12-08] MEDS ORDERED: PoTASSium chloRIDE 20MEQ/100ML 100 ML IV PRN (12:00)
[2023-12-08] MEDS ORDERED: PoTASSium chl 10% ELIXIR 20MEQ 20 MEQ/15 ML UDCUP PO PRN (12:00)
[2023-12-08] MEDS: MAGNESIUM OXIDE 400 MG TABLET PO ONE (12:29)
[2023-12-08] MEDS: PoTASSium chloRIDE 20MEQ ER 20 MEQ ERTAB PO PRN (12:29)
[2023-12-08] MEDS ORDERED: BisaCODYL 10 MG SUPP.RECT RC ONE (15:00)
[2023-12-08] MEDS: BisaCODYL 5 MG TABLET.DR PO ONE (15:23)
[2023-12-08] MEDS: PEG 3350/NA SULF,BICARB,CL/KCL 4000 ML SOLN PO ONE (15:24)
[2023-12-08] MEDS ORDERED: BisaCODYL 5 MG TABLET.DR PO ONE (15:30)
[2023-12-08] MEDS: ondanSETRON 4MG TABLET PO PRN (19:38)
[2023-12-08 21:09] LABS: HEMATOCRIT 25.6 % (36-48)
[2023-12-09] VITALS (23 sets, daily range): BP systolic 104–131; BP diastolic 54–86; PULSE 97–113; RESP 16–18; TEMP 97.4–98.7; O2SAT 98–100
[2023-12-09 05:38] LABS: HEMATOCRIT 26.1 % (36-48); MEAN CORPUSCULAR HEMOGLOBIN 29.2 pg (27.0-33.0); MEAN CORPUSCULAR HGB CONC 31.8 g/dL (32.0-36.0); MEAN CORPUSCULAR VOLUME 91.9 fL (79-99); RED BLOOD CELL COUNT(AUTO) 2.84 MIL/uL (4.00-5.50); RED CELL DISTRIBUTION WIDTH 12.5 % (11.0-15.5); WHITE BLOOD COUNT (AUTO) 11.1 K/uL (4.8-10.8)
[2023-12-09 05:53] LABS: INR 1.05 (0.85-1.15); PROTHROMBIN TIME 11.3 SEC (9.6-11.6)
[2023-12-09 05:59] LABS: CREATININE 0.7 mg/dL (0.5-1.0); MAGNESIUM 1.9 mg/dL (1.80-2.40); POTASSIUM 4.3 mmol/L (3.5-5.1)
[2023-12-09] MEDS: FOLIC PO SCH (07:40)
[2023-12-09] MEDS: K1 PO SCH (07:40)
[2023-12-09] MEDS: LUTEIN PO SCH (07:40)
[2023-12-09] MEDS: MV MIN PO SCH (07:40)
[2023-12-09] MEDS: LYCOPEN PO SCH (07:40)
[2023-12-09 09:08] LABS: HEMATOCRIT 23.6 % (36-48)
[2023-12-09] MEDS ORDERED: proPOFol 10 MG/ML 20ML VIAL IV ONE (11:53)
[2023-12-09] MEDS ORDERED: LIDOCAINE HCL 1% 20 ML VIAL ONE (11:54)
[2023-12-09] MEDS: BisaCODYL 5 MG TABLET.DR PO ONE (16:29)
[2023-12-09] MEDS: PEG 3350/NA SULF,BICARB,CL/KCL 4000 ML SOLN PO ONE (16:34)
[2023-12-09 19:15] LABS: HEMATOCRIT 21.9 % (36-48); MEAN CORPUSCULAR HEMOGLOBIN 28.9 pg (27.0-33.0); MEAN CORPUSCULAR VOLUME 90.5 fL (79-99); RED BLOOD CELL COUNT(AUTO) 2.42 MIL/uL (4.00-5.50); RED CELL DISTRIBUTION WIDTH 12.8 % (11.0-15.5); WHITE BLOOD COUNT (AUTO) 12.8 K/uL (4.8-10.8)
[2023-12-10] VITALS (26 sets, daily range): BP systolic 114–154; BP diastolic 50–75; PULSE 96–126; RESP 12–19; TEMP 97.8–100; O2SAT 98–100
[2023-12-10 04:10] LABS: BASOPHILS # (AUTO) 0.07 K/uL (0.00-0.20); BASOPHILS % (AUTO) 0.7 % (0.0-5.0); HEMATOCRIT 22.5 % (36-48); IMMATURE GRANULOCYTE ABSOLUTE 0.08 K/uL (0-1); LYMPHOCYTES % (AUTO) 30.6 % (21.0-51.0); MEAN CORPUSCULAR HEMOGLOBIN 28.7 pg (27.0-33.0); MEAN CORPUSCULAR VOLUME 89.6 fL (79-99); MONOCYTES # (AUTO) 0.8 K/uL (0.1-1.0); MONOCYTES % (AUTO) 8.4 % (3.0-13.0); NEUTROPHILS # (AUTO) 5.7 K/uL (1.8-7.7); NEUTROPHILS % (AUTO) 58.5 % (40.0-77.0); NUCLEATED RED BLOOD CELLS 0.2 % (0.0-0.19); PLATELET COUNT (AUTO) 226 K/uL (130-400); RED BLOOD CELL COUNT(AUTO) 2.51 MIL/uL (4.00-5.50); RED CELL DISTRIBUTION WIDTH 13.2 % (11.0-15.5); WHITE BLOOD COUNT (AUTO) 9.8 K/uL (4.8-10.8)
[2023-12-10 04:15] LABS: CREATININE 0.6 mg/dL (0.5-1.0); MAGNESIUM 1.8 mg/dL (1.80-2.40); POTASSIUM 3.6 mmol/L (3.5-5.1)
[2023-12-10] MEDS ORDERED: proPOFol 10 MG/ML 20ML VIAL IV ONE ×3 (07:06→07:42)
[2023-12-10] MEDS ORDERED: LIDOCAINE PF 100MG/5ML (2%) SYRINGE 5ML ONE (07:06)
[2023-12-10 11:23] LABS: BASOPHILS # (AUTO) 0.04 K/uL (0.00-0.20); BASOPHILS % (AUTO) 0.2 % (0.0-5.0); EOSINOPHILS # (AUTO) 0.01 K/uL (0.00-0.70); EOSINOPHILS % (AUTO) 0.1 % (0.0-8.0); IMMATURE GRANULOCYTE ABSOLUTE 0.16 K/uL (0-1); LYMPHOCYTES # (AUTO) 1.3 K/uL (1.0-4.8); LYMPHOCYTES % (AUTO) 8.1 % (21.0-51.0); MEAN CORPUSCULAR VOLUME 90.8 fL (79-99); MONOCYTES # (AUTO) 0.7 K/uL (0.1-1.0); MONOCYTES % (AUTO) 4.4 % (3.0-13.0); NEUTROPHILS # (AUTO) 14.3 K/uL (1.8-7.7); NEUTROPHILS % (AUTO) 86.2 % (40.0-77.0); NUCLEATED RED BLOOD CELLS 0.1 % (0.0-0.19); PLATELET COUNT (AUTO) 231 K/uL (130-400); RED BLOOD CELL COUNT(AUTO) 2.17 MIL/uL (4.00-5.50); RED CELL DISTRIBUTION WIDTH 13.4 % (11.0-15.5); WHITE BLOOD COUNT (AUTO) 16.6 K/uL (4.8-10.8)
[2023-12-10 11:29] LABS: HEMATOCRIT 19.7 % (36-48)
[2023-12-10 20:06] LABS: BASOPHILS # (AUTO) 0.04 K/uL (0.00-0.20); BASOPHILS % (AUTO) 0.2 % (0.0-5.0); EOSINOPHILS # (AUTO) 0.02 K/uL (0.00-0.70); EOSINOPHILS % (AUTO) 0.1 % (0.0-8.0); IMMATURE GRANULOCYTE ABSOLUTE 0.09 K/uL (0-1); LYMPHOCYTES # (AUTO) 2.5 K/uL (1.0-4.8); LYMPHOCYTES % (AUTO) 14.1 % (21.0-51.0); MEAN CORPUSCULAR HEMOGLOBIN 29.8 pg (27.0-33.0); MEAN CORPUSCULAR VOLUME 90.4 fL (79-99); MONOCYTES # (AUTO) 1.2 K/uL (0.1-1.0); NEUTROPHILS # (AUTO) 13.8 K/uL (1.8-7.7); NEUTROPHILS % (AUTO) 78.1 % (40.0-77.0); NUCLEATED RED BLOOD CELLS 0.2 % (0.0-0.19); PLATELET COUNT (AUTO) 220 K/uL (130-400); RED BLOOD CELL COUNT(AUTO) 2.08 MIL/uL (4.00-5.50); RED CELL DISTRIBUTION WIDTH 13.7 % (11.0-15.5); WHITE BLOOD COUNT (AUTO) 17.7 K/uL (4.8-10.8)
[2023-12-10 20:48] LABS: HEMATOCRIT 18.8 % (36-48)
[2023-12-11] VITALS (9 sets, daily range): BP systolic 104–144; BP diastolic 50–74; PULSE 94–106; RESP 17–18; TEMP 98.3–99.3; O2SAT 98–100
[2023-12-11 07:50] LABS: MEAN CORPUSCULAR HEMOGLOBIN 29.9 pg (27.0-33.0); MEAN CORPUSCULAR HGB CONC 33.9 g/dL (32.0-36.0); MEAN CORPUSCULAR VOLUME 88.1 fL (79-99); NUCLEATED RED BLOOD CELLS 0.4 % (0.0-0.19); RED BLOOD CELL COUNT(AUTO) 2.61 MIL/uL (4.00-5.50); WHITE BLOOD COUNT (AUTO) 10.3 K/uL (4.8-10.8)
[2023-12-11 08:10] LABS: CREATININE 0.6 mg/dL (0.5-1.0); MAGNESIUM 1.7 mg/dL (1.80-2.40); POTASSIUM 3.4 mmol/L (3.5-5.1)
[2023-12-11] MEDS: MAGNESIUM 2GM PREMIX 50ML 50 ML IV PRN (13:08)
[2023-12-11 14:02] LABS: HEMATOCRIT 21.5 % (36-48); MEAN CORPUSCULAR HEMOGLOBIN 29.6 pg (27.0-33.0); MEAN CORPUSCULAR HGB CONC 33.5 g/dL (32.0-36.0); MEAN CORPUSCULAR VOLUME 88.5 fL (79-99); NUCLEATED RED BLOOD CELLS 0.4 % (0.0-0.19); PLATELET COUNT (AUTO) 208 K/uL (130-400); RED BLOOD CELL COUNT(AUTO) 2.43 MIL/uL (4.00-5.50); RED CELL DISTRIBUTION WIDTH 14.1 % (11.0-15.5); WHITE BLOOD COUNT (AUTO) 9.8 K/uL (4.8-10.8)
[2023-12-11 14:35] LABS: BASOPHILS # (AUTO) 0.04 K/uL (0.00-0.20); BASOPHILS % (AUTO) 0.4 % (0.0-5.0); EOSINOPHILS # (AUTO) 0.09 K/uL (0.00-0.70); EOSINOPHILS % (AUTO) 0.9 % (0.0-8.0); IMMATURE GRANULOCYTE ABSOLUTE 0.07 K/uL (0-1); LYMPHOCYTES # (AUTO) 2.2 K/uL (1.0-4.8); LYMPHOCYTES % (AUTO) 22.5 % (21.0-51.0); MONOCYTES # (AUTO) 0.6 K/uL (0.1-1.0); NEUTROPHILS # (AUTO) 6.8 K/uL (1.8-7.7); NEUTROPHILS % (AUTO) 69.5 % (40.0-77.0)
[2023-12-11] MEDS: FERROUS SULFATE 325 MG TABLET.DR PO SCH (18:22)
[2023-12-11 19:23] LABS: BASOPHILS # (AUTO) 0.04 K/uL (0.00-0.20); BASOPHILS % (AUTO) 0.4 % (0.0-5.0); EOSINOPHILS # (AUTO) 0.17 K/uL (0.00-0.70); EOSINOPHILS % (AUTO) 1.5 % (0.0-8.0); HEMATOCRIT 21.3 % (36-48); IMMATURE GRANULOCYTE ABSOLUTE 0.08 K/uL (0-1); LYMPHOCYTES # (AUTO) 2.8 K/uL (1.0-4.8); LYMPHOCYTES % (AUTO) 24.6 % (21.0-51.0); MEAN CORPUSCULAR HEMOGLOBIN 29.8 pg (27.0-33.0); MEAN CORPUSCULAR HGB CONC 33.3 g/dL (32.0-36.0); MEAN CORPUSCULAR VOLUME 89.5 fL (79-99); MONOCYTES % (AUTO) 8.5 % (3.0-13.0); NEUTROPHILS # (AUTO) 7.2 K/uL (1.8-7.7); NEUTROPHILS % (AUTO) 64.3 % (40.0-77.0); NUCLEATED RED BLOOD CELLS 0.4 % (0.0-0.19); PLATELET COUNT (AUTO) 245 K/uL (130-400); RED BLOOD CELL COUNT(AUTO) 2.38 MIL/uL (4.00-5.50); RED CELL DISTRIBUTION WIDTH 14.4 % (11.0-15.5); WHITE BLOOD COUNT (AUTO) 11.2 K/uL (4.8-10.8)
[2023-12-12 04:13] VITALS: BP 102/53; PULSE 99; RESP 17; TEMP 98.1
[2023-12-12 06:25] LABS: MEAN CORPUSCULAR HEMOGLOBIN 28.9 pg (27.0-33.0); MEAN CORPUSCULAR HGB CONC 31.9 g/dL (32.0-36.0); MEAN CORPUSCULAR VOLUME 90.5 fL (79-99); NUCLEATED RED BLOOD CELLS 0.4 % (0.0-0.19); RED BLOOD CELL COUNT(AUTO) 2.32 MIL/uL (4.00-5.50); RED CELL DISTRIBUTION WIDTH 14.4 % (11.0-15.5); WHITE BLOOD COUNT (AUTO) 8.5 K/uL (4.8-10.8)
[2023-12-12 06:36] LABS: CREATININE 0.5 mg/dL (0.5-1.0); MAGNESIUM 1.8 mg/dL (1.80-2.40); POTASSIUM 3.8 mmol/L (3.5-5.1)
[2023-12-12 08:00] VITALS: BP 122/65; PULSE 93; RESP 18; TEMP 97.6
[2023-12-12] MEDS ORDERED: IOHEXOL 350 MG/ML 100ML INFUS..BTL IV ONE (09:34)
[2023-12-12 10:00] VITALS: O2SAT 100
[2023-12-12 11:58] VITALS: BP 113/73; PULSE 111; RESP 18; TEMP 97.7
[2023-12-12 16:00] VITALS: BP 126/59; PULSE 106; RESP 18; TEMP 98.6
[2023-12-12 17:28] LABS: % IRON SATURATION 27.8 % (22-44)
[2023-12-12] MEDS: IRON sUCROse COMPLEX 100 MG/5 ML VIAL IV ONE (18:21)
[2023-12-12 20:00] VITALS: BP 126/58; PULSE 107; RESP 18; TEMP 98.6
[2023-12-13] VITALS (7 sets, daily range): BP systolic 110–137; BP diastolic 53–68; PULSE 94–113; RESP 16–19; TEMP 98–99.4; O2SAT 95–97
[2023-12-13 06:43] LABS: BASOPHILS # (AUTO) 0.05 K/uL (0.00-0.20); BASOPHILS % (AUTO) 0.5 % (0.0-5.0); EOSINOPHILS # (AUTO) 0.21 K/uL (0.00-0.70); EOSINOPHILS % (AUTO) 2.2 % (0.0-8.0); HEMATOCRIT 22.9 % (36-48); IMMATURE GRANULOCYTE ABSOLUTE 0.08 K/uL (0-1); LYMPHOCYTES % (AUTO) 20.2 % (21.0-51.0); MEAN CORPUSCULAR HEMOGLOBIN 29.6 pg (27.0-33.0); MEAN CORPUSCULAR HGB CONC 31.9 g/dL (32.0-36.0); MEAN CORPUSCULAR VOLUME 92.7 fL (79-99); MONOCYTES # (AUTO) 0.8 K/uL (0.1-1.0); MONOCYTES % (AUTO) 7.8 % (3.0-13.0); NEUTROPHILS # (AUTO) 6.6 K/uL (1.8-7.7); NEUTROPHILS % (AUTO) 68.5 % (40.0-77.0); NUCLEATED RED BLOOD CELLS 0.6 % (0.0-0.19); PLATELET COUNT (AUTO) 257 K/uL (130-400); RED BLOOD CELL COUNT(AUTO) 2.47 MIL/uL (4.00-5.50); RED CELL DISTRIBUTION WIDTH 14.5 % (11.0-15.5); WHITE BLOOD COUNT (AUTO) 9.6 K/uL (4.8-10.8)
[2023-12-13 07:55] LABS: CREATININE 0.6 mg/dL (0.5-1.0); POTASSIUM 3.7 mmol/L (3.5-5.1)
[2023-12-13] MEDS: IRON sUCROse COMPLEX 100 MG/5 ML VIAL IV ONE (14:40)
[2023-12-13 16:24] LABS: INR 1.08 (0.85-1.15); PROTHROMBIN TIME 11.6 SEC (9.6-11.6)
[2023-12-13 16:25] LABS: PARTIAL THROMBOPLASTIN TIME 20.7 SEC (26.3-35.5)
[2023-12-13] MEDS: dexaMETHasone SOD PHOSPHATE 4 MG/ML 1ML VIAL IVP ONE (17:27)
[2023-12-13] MEDS: PEG 3350/NA SULF,BICARB,CL/KCL 4000 ML SOLN PO ONE (19:19)
[2023-12-13 21:53] LABS: HEMATOCRIT 23.5 % (36-48)
[2023-12-14] VITALS (7 sets, daily range): BP systolic 99–138; BP diastolic 45–66; PULSE 87–111; RESP 16–19; TEMP 97.6–98.4; O2SAT 97–98
[2023-12-14 04:32] LABS: MEAN CORPUSCULAR HEMOGLOBIN 30.6 pg (27.0-33.0); MEAN CORPUSCULAR HGB CONC 33.8 g/dL (32.0-36.0); MEAN CORPUSCULAR VOLUME 90.5 fL (79-99); NUCLEATED RED BLOOD CELLS 0.8 % (0.0-0.19); RED BLOOD CELL COUNT(AUTO) 2.22 MIL/uL (4.00-5.50)
[2023-12-14 04:42] LABS: CREATININE 0.6 mg/dL (0.5-1.0); MAGNESIUM 1.7 mg/dL (1.80-2.40); POTASSIUM 4.5 mmol/L (3.5-5.1)
[2023-12-14 04:55] LABS: HEMATOCRIT 20.1 % (36-48)
[2023-12-14] MEDS ORDERED: PHARMACY COMMUNICATION MISC SCH (12:00)
[2023-12-14] MEDS: NACL 0.9% IV ONE (12:09)
[2023-12-14] MEDS: AMINOCAPROIC ACID IV ONE (12:09)
[2023-12-15] VITALS (7 sets, daily range): BP systolic 101–122; BP diastolic 49–67; PULSE 90–108; RESP 16–18; TEMP 97.8–99.8; O2SAT 98
[2023-12-15 04:53] LABS: HEMATOCRIT 23.3 % (36-48); MEAN CORPUSCULAR HEMOGLOBIN 29.2 pg (27.0-33.0); MEAN CORPUSCULAR HGB CONC 31.3 g/dL (32.0-36.0); MEAN CORPUSCULAR VOLUME 93.2 fL (79-99); NUCLEATED RED BLOOD CELLS 0.9 % (0.0-0.19); PLATELET COUNT (AUTO) 255 K/uL (130-400); WHITE BLOOD COUNT (AUTO) 15.6 K/uL (4.8-10.8)
[2023-12-15 05:07] LABS: CREATININE 0.6 mg/dL (0.5-1.0); MAGNESIUM 1.9 mg/dL (1.80-2.40); POTASSIUM 3.8 mmol/L (3.5-5.1)
[2023-12-15 16:06] LABS: HEMATOCRIT 22.9 % (36-48)
[2023-12-16] VITALS: BP 126/64; PULSE 89; RESP 18; TEMP 98
[2023-12-16 03:51] VITALS: BP 119/57; PULSE 67; RESP 16; TEMP 98
[2023-12-16 05:45] LABS: BASOPHILS # (AUTO) 0.06 K/uL (0.00-0.20); BASOPHILS % (AUTO) 0.5 % (0.0-5.0); EOSINOPHILS # (AUTO) 0.43 K/uL (0.00-0.70); EOSINOPHILS % (AUTO) 3.6 % (0.0-8.0); HEMATOCRIT 24.8 % (36-48); IMMATURE GRANULOCYTE ABSOLUTE 0.34 K/uL (0-1); LYMPHOCYTES # (AUTO) 3.1 K/uL (1.0-4.8); LYMPHOCYTES % (AUTO) 26.1 % (21.0-51.0); MEAN CORPUSCULAR HEMOGLOBIN 30.4 pg (27.0-33.0); MEAN CORPUSCULAR HGB CONC 31.9 g/dL (32.0-36.0); MEAN CORPUSCULAR VOLUME 95.4 fL (79-99); MONOCYTES # (AUTO) 0.8 K/uL (0.1-1.0); MONOCYTES % (AUTO) 6.4 % (3.0-13.0); NEUTROPHILS # (AUTO) 7.3 K/uL (1.8-7.7); NEUTROPHILS % (AUTO) 60.6 % (40.0-77.0); NUCLEATED RED BLOOD CELLS 1.2 % (0.0-0.19); PLATELET COUNT (AUTO) 258 K/uL (130-400); RED CELL DISTRIBUTION WIDTH 20.9 % (11.0-15.5)
[2023-12-16 06:11] LABS: ALBUMIN 2.5 g/dL (3.5-5.0); BILIRUBIN,TOTAL 0.7 mg/dL (0.2-1.0); CREATININE 0.6 mg/dL (0.5-1.0); POTASSIUM 4.3 mmol/L (3.5-5.1); TOTAL PROTEIN, SERUM 5.1 g/dL (6.0-8.3)
[2023-12-16 08:00] VITALS: BP 111/63; PULSE 88; RESP 18; TEMP 98.4
[2023-12-16 08:29] VITALS: O2SAT 97
[2023-12-16 12:00] VITALS: BP 121/61; PULSE 94; RESP 20; TEMP 98.3
[2023-12-16 16:00] VITALS: BP 122/59; PULSE 99; RESP 20; TEMP 98.4
[2023-12-16] MEDS ORDERED: CHOLESTYRAMINE PACKET 4 GM PACKET PO SCH (21:00)
== END 2023-12-16 16:24 | disposition home or self-care (01) | DRG 379 ==
LOC: EDH 15:34 → EDHIP 18:02 → 3BH 18:46
PROVIDERS: ADMIT Internal Medicine Infectious Disease; ATTEND Internal Medicine Infectious Disease
PROC: 0DJD8ZZ Inspection of Lower Intestinal Tract, Via Natural or Artificial Opening Endoscopic (ICD-10-PCS; principal; 2023-12-09)
PROC: 30233N1 Transfusion of Nonautologous Red Blood Cells into Peripheral Vein, Percutaneous Approach (ICD-10-PCS; 2023-12-09)
PROC: 0DJD8ZZ Inspection of Lower Intestinal Tract, Via Natural or Artificial Opening Endoscopic (ICD-10-PCS; 2023-12-10)
PROC: 0DB88ZX Excision of Small Intestine, Via Natural or Artificial Opening Endoscopic, Diagnostic (ICD-10-PCS; 2023-12-10)
DX: K92.1 Melena (principal); I10 Essential (primary) hypertension; E11.65 Type 2 diabetes mellitus with hyperglycemia; D64.9 Anemia, unspecified; E66.9 Obesity, unspecified; K29.71 Gastritis, unspecified, with bleeding; E87.6 Hypokalemia; D72.829 Elevated white blood cell count, unspecified; K44.9 Diaphragmatic hernia without obstruction or gangrene; K64.8 Other hemorrhoids; K57.31 Diverticulosis of large intestine without perforation or abscess with bleeding; Z86.711 Personal history of pulmonary embolism; Z86.718 Personal history of other venous thrombosis and embolism; Z79.899 Other long term (current) drug therapy; Z68.38 Body mass index [BMI] 38.0-38.9, adult; Z83.3 Family history of diabetes mellitus
CPT/HCPCS: 36415; 36430; 44361; 45378; 74174; 74176; 78278; 78290; 80048; 80053; 81001; 82270; 82948; 83540; 83550; 83735; 85014; 85018; 85025; 85027; 85610; 85730; 86850; 86880; 86900; 86901; 86923; 87086; 88305; 88312; 93005; 96365; 96366; 96372; 96375; A4606; A9512; C1894; G0378; J1100; J1756; J1815; J2003; J2470; J2704; J3475; J3490; J7030; J7050; P9016; Q0162; Q9967; A4215; A4222; A4223; A4620; A4657; C1750

== ENCOUNTER → 2024-01-03 | Outpatient (CLI) | payer OTHER ==
[~2024-01-03] MED LIST changes: +PANT40TA PO; -SEMA0.258 SQ
[2024-01-03 08:32] LABS: BASOPHILS # (AUTO) 0.06 K/uL (0.00-0.20); EOSINOPHILS # (AUTO) 0.18 K/uL (0.00-0.70); EOSINOPHILS % (AUTO) 2.9 % (0.0-8.0); HEMATOCRIT 30.3 % (36-48); IMMATURE GRANULOCYTE ABSOLUTE 0.01 K/uL (0-1); LYMPHOCYTES # (AUTO) 1.5 K/uL (1.0-4.8); LYMPHOCYTES % (AUTO) 23.9 % (21.0-51.0); MEAN CORPUSCULAR HEMOGLOBIN 27.1 pg (27.0-33.0); MEAN CORPUSCULAR VOLUME 90.2 fL (79-99); MONOCYTES # (AUTO) 0.4 K/uL (0.1-1.0); MONOCYTES % (AUTO) 6.2 % (3.0-13.0); NEUTROPHILS # (AUTO) 4.2 K/uL (1.8-7.7); NEUTROPHILS % (AUTO) 65.8 % (40.0-77.0); PLATELET COUNT (AUTO) 337 K/uL (130-400); RED BLOOD CELL COUNT(AUTO) 3.36 MIL/uL (4.00-5.50); RED CELL DISTRIBUTION WIDTH 16.4 % (11.0-15.5); WHITE BLOOD COUNT (AUTO) 6.3 K/uL (4.8-10.8)
== END | disposition home or self-care (01) ==
LOC: LAB 08:02
PROVIDERS: ATTEND Internal Medicine Gastroenterology
DX: D50.9 Iron deficiency anemia, unspecified (principal)
CPT/HCPCS: 36415; 82270; 85025

== ENCOUNTER → 2024-06-16 | Outpatient (CLI) | payer OTHER ==
[2024-06-16 08:16] LABS: BASOPHILS # (AUTO) 0.05 K/uL (0.00-0.20); BASOPHILS % (AUTO) 0.9 % (0.0-5.0); EOSINOPHILS % (AUTO) 3.6 % (0.0-8.0); HEMATOCRIT 42.6 % (36-48); IMMATURE GRANULOCYTE ABSOLUTE 0.02 K/uL (0-1); LYMPHOCYTES # (AUTO) 1.4 K/uL (1.0-4.8); LYMPHOCYTES % (AUTO) 24.3 % (21.0-51.0); MEAN CORPUSCULAR HEMOGLOBIN 31.4 pg (27.0-33.0); MEAN CORPUSCULAR HGB CONC 34.5 g/dL (32.0-36.0); MONOCYTES # (AUTO) 0.4 K/uL (0.1-1.0); MONOCYTES % (AUTO) 7.8 % (3.0-13.0); NEUTROPHILS # (AUTO) 3.6 K/uL (1.8-7.7); PLATELET COUNT (AUTO) 230 K/uL (130-400); RED BLOOD CELL COUNT(AUTO) 4.68 MIL/uL (4.00-5.50); RED CELL DISTRIBUTION WIDTH 11.9 % (11.0-15.5); WHITE BLOOD COUNT (AUTO) 5.6 K/uL (4.8-10.8)
[2024-06-16 08:40] LABS: ALBUMIN 3.8 g/dL (3.5-5.0); BILIRUBIN,TOTAL 1.2 mg/dL (0.2-1.0); CREATININE 0.7 mg/dL (0.5-1.0); THYROID STIMULATING HORMONE 2.25 uIU/mL (0.36-3.74); TOTAL PROTEIN, SERUM 7.3 g/dL (6.0-8.3)
[2024-06-16 08:42] LABS: HEMOGLOBIN A1C 11.1 % (4.0-6.0)
== END | disposition home or self-care (01) ==
LOC: LAB 07:04
PROVIDERS: ATTEND Internal Medicine
DX: E11.9 Type 2 diabetes mellitus without complications (principal); E78.5 Hyperlipidemia, unspecified; E55.9 Vitamin D deficiency, unspecified; R14.0 Abdominal distension (gaseous)
CPT/HCPCS: 36415; 80053; 80061; 82784; 83013; 83036; 83516; 84443; 85025; 86231; 86364

== ENCOUNTER → 2024-12-18 | Outpatient (CLI) | payer OTHER ==
[2024-12-18 08:05] LABS: IMMATURE GRANULOCYTE ABSOLUTE 0.02 K/uL (0-1); NUCLEATED RED BLOOD CELLS 0.0 % (0.0-0.19); PLATELET COUNT (AUTO) 245 K/uL (130-400); RED BLOOD CELL COUNT(AUTO) 4.72 MIL/uL (4.00-5.50); RED CELL DISTRIBUTION WIDTH 11.6 % (11.0-15.5); WHITE BLOOD COUNT (AUTO) 6.3 K/uL (4.8-10.8)
[2024-12-18 08:39] LABS: ASPARTATE AMINOTRANSFERASE 26.0 U/L (10-37); CREATININE 0.6 mg/dL (0.5-1.0); GLOMERULAR FILTR. RATE CALC 98.0 mL/min (>90); GLUCOSE,RANDOM 143.0 mg/dL (70-105); LDL DIRECT 121.0 mg/dL (0-99); SODIUM SERUM 140.0 mmol/L (136-145); TOTAL PROTEIN, SERUM 7.4 g/dL (6.0-8.3); UREA NITROGEN, BLOOD 13.0 mg/dL (7-18)
== END | disposition home or self-care (01) ==
LOC: LAB 07:21
PROVIDERS: ATTEND Internal Medicine Nephrology
DX: E78.5 Hyperlipidemia, unspecified (principal); E11.9 Type 2 diabetes mellitus without complications; E55.9 Vitamin D deficiency, unspecified; R53.83 Other fatigue
CPT/HCPCS: 36415; 80053; 80061; 82043; 82306; 82570; 83036; 84443; 85025

== ENCOUNTER → 2024-12-23 | Outpatient (CLI) | payer OTHER | END | disposition home or self-care (01) | LOC: LAB 10:12 | PROVIDERS: ATTEND Hospitalist | DX: Z11.52 Encounter for screening for COVID-19 (principal); Z20.822 Contact with and (suspected) exposure to COVID-19 | CPT/HCPCS: 87426 ==